=== PATIENT | female | born 1975 | race African-American/Black ===

== ENCOUNTER 2023-10-09 18:45 | Emergency (ER) | payer SELFPAY ==
[~2023-10-09] VITALS: Ht 157.5 cm; Wt 63.0 kg
[2023-10-09 18:50] VITALS: BP 157/93; TEMP 98.9; O2SAT 100
[2023-10-09 18:52] VITALS: PULSE 75; RESP 18; O2SAT 100
[2023-10-09] MEDS ORDERED: ACETAMINOPHEN 325MG TABLET PO ONE (21:00)
== END 2023-10-09 20:52 | disposition home or self-care (01) ==
LOC: ER 18:45
DX: S90.122A Contusion of left lesser toe(s) without damage to nail, initial encounter (principal); X58.XXXA Exposure to other specified factors, initial encounter; Y93.89 Activity, other specified; Y92.89 Other specified places as the place of occurrence of the external cause; Y99.8 Other external cause status
CPT/HCPCS: 73660; 99283